=== PATIENT | male | born 1980 | race Caucasian/White ===

== ENCOUNTER 2021-10-23 22:20 | Emergency (ER) | payer OTHER ==
--- NOTE | 2021-10-23 22:29 | ERPHSYRPT ---
- History of Present Illness Time Seen by Provider: 10/23/21 22:28 Source: patient Exam Limitations: no limitations Physician History: This is a 41-year-old right-handed white male who does a lot of heavy lifting at work that is repetitive. He stated that he did a lot of lifting today and now he is having pain in his right shoulder and posterior neck primarily on the right side. The pain goes up into his scalp posteriorly. Occurred: this afternoon Quality: constant, sharpness, stabbing Severity of Pain-Max: moderate Severity of Pain-Current: moderate Extremities Pain Location: shoulder: right Modifying Factors: Improves With: movement Associated Symptoms: none Allergies/Adverse Reactions: No Known Drug Allergies Allergy (Unverified 10/23/21 22:36) Travel Risk - International Travel Have you traveled outside of the country in past 3 weeks: No - Coronavirus Screening Are you exhibiting any of the following symptoms?: No Close contact with a COVID-19 positive Pt in past 14-21 Days: No - Review of Systems Constitutional: No Symptoms Eyes: No Symptoms Ears, Nose, & Throat: No Symptoms Respiratory: No Symptoms Cardiac: No Symptoms Abdominal/Gastrointestinal: No Symptoms Genitourinary Symptoms: No Symptoms Musculoskeletal: Neck Pain (Right side paraspinous muscle region), Joint Pain (Right shoulder anterior and posterior) Neurological: No Symptoms Psychological: No Symptoms Endocrine: No Symptoms Hematologic/Lymphatic: No Symptoms Immunological/Allergic: No Symptoms All Other Systems: Reviewed and Negative - Past Medical History Pertinent Past Medical History: Yes - Past Surgical History Past Surgical History: Yes - Nursing Vital Signs Nursing Vital Signs: Initial Vital Signs Temperature 98.2 F 10/23/21 22:22 Pulse Rate 75 10/23/21 22:22 Respiratory Rate 18 10/23/21 22:22 Blood Pressure 153/85 10/23/21 22:22 O2 Sat by Pulse Oximetry 98 10/23/21 22:22 Pain Scale Pain Intensity 4 - Physical Exam General Appearance: no apparent distress, alert, anxiety Eyes, Ears, Nose, Throat Exam: normal ENT inspection, moist mucous membranes Neck Exam: normal inspection, non-tender, supple, full range of motion Cardiovascular/Respiratory Exam: chest non-tender, no respiratory distress Abdominal Exam: non-tender Back Exam: normal inspection, normal range of motion, muscle spasm (Posterior neck paraspinous muscle region cervical spine level. Distribution of the trapezius muscle on the right side), No CVA tenderness, No vertebral tenderness Shoulder Exam: normal inspection, no evidence of injury, normal ROM, soft tissue tenderness (Posterior the distribution of the trapezius muscle) Elbow/Forearm Exam: normal inspection, non-tender, no evidence of injury, normal ROM Wrist Exam: normal inspection, non-tender, no evidence of injury, normal ROM Hand Exam: normal inspection, non-tender, no evidence of injury, normal ROM Neuro/Tendon Exam: normal sensation, normal motor functions, normal tendon functions Mental Status Exam: alert, oriented x 3, cooperative Skin Exam: normal color, warm, dry SpO2 Interpretation: normal O2 Delivery: Room Air - Course Nursing assessment & vital signs reviewed: Yes Ordered Tests: Active Orders 24 hr Category Date Time Status SHOULDER Stat Exams 10/23/21 22:47 Taken Medication Summary Discontinued Medications Generic Name Dose Route Start Last Admin Trade Name Freq PRN Reason Stop Dose Admin Methylprednisolone Sodium 0 mg 10/23/21 22:57 Succinate 125 mg/ Sterile IM 10/23/21 22:58 Water 2 ml STAT ONE Hydromorphone HCl 1 mg 10/23/21 22:56 Hydromorphone 1 Mg/1ml Inj 1 Mg/Ml Syringe IM 10/23/21 22:57 STAT ONE Hydromorphone HCl Confirm 10/23/21 23:05 Hydromorphone 1 Mg/1ml Inj 1 Mg/Ml Syringe Administered 10/23/21 23:06 Dose 1 mg .ROUTE .STK-MED ONE Methylprednisolone Sodium Succinate Confirm 10/23/21 23:05 Methylprednis Sod Succ 125 Mg/2 Ml Vial Administered 10/23/21 23:06 Dose 125 mg .ROUTE .STK-MED ONE Ondansetron HCl 4 mg 10/23/21 22:56 Zofran 4 Mg/Udtablet Orally Disintegrating PO 10/23/21 22:57 STAT ONE Ondansetron HCl Confirm 10/23/21 23:04 Zofran 4 Mg/Udtablet Orally Disintegrating Administered 10/23/21 23:05 Dose 4 mg .ROUTE .STK-MED ONE Orphenadrine Citrate 60 mg 10/23/21 22:57 Orphenadrine Citrate 60 Mg/2 Ml Vial IM 10/23/21 22:58 STAT ONE Orphenadrine Citrate Confirm 10/23/21 23:05 Orphenadrine Citrate 60 Mg/2 Ml Vial Administered 10/23/21 23:06 Dose 60 mg .ROUTE .STK-MED ONE Sterile Water Confirm 10/23/21 23:04 Water For Injection,Sterile 10 Ml Vial Administered 10/23/21 23:05 Dose 10 ml IJ .STK-MED ONE - Progress Progress: improved Progress Note: 10/23/21 23:10 Right shoulder x-ray shows no acute fracture or dislocation. Counseled pt/family regarding: diagnosis, need for follow-up, rad results - Departure Departure Disposition: Home Clinical Impression: Strain of right trapezius muscle Condition: Stable Critical Care Time: No Referrals: KEVYN FIGUEROA MD [Primary Care Provider] - Follow up/PCP as directed Additional Instructions: Take your medication as prescribed. Follow-up with your primary care physician for further management. They also use topical agents and massage to the right neck and shoulder muscles. Forms: Work/School Release Form Prescriptions: Oxycodone HCl/Acetaminophen [Percocet 5-325 mg Tablet] 1 each PO Q8H PRN PRN #6 tablet MDD 3 PRN Reason: Moderate To Severe Pain Naproxen 500 mg [Naprosyn 500 MG] 500 mg PO BID #10 tablet Orphenadrine Citrate 100 mg [Norflex 100 MG Tablet] 100 mg PO BID #10 tab
[2021-10-23 22:36] VITALS: O2SAT 98
[2021-10-23] MEDS ORDERED: ZOFRAN ODT 4 MG PO ONE (22:56)
[2021-10-23] MEDS ORDERED: Hydromorphone 1 mg/ml Injection IM ONE (22:56)
[2021-10-23] MEDS ORDERED: solu-MEDROL 125 MG, Sterile H2O 10 ml 2 ML IM ONE ×2 (22:57)
[2021-10-23] MEDS ORDERED: Norflex 60 MG/2 ML IM ONE (22:57)
[2021-10-23] MEDS ORDERED: ZOFRAN ODT 4 MG ONE (23:04)
[2021-10-23] MEDS ORDERED: Sterile H2O 10 ml IJ ONE (23:04)
[2021-10-23] MEDS ORDERED: solu-MEDROL ONE (23:05)
[2021-10-23] MEDS ORDERED: Hydromorphone 1 mg/ml Injection ONE (23:05)
[2021-10-23] MEDS ORDERED: Norflex 60 MG/2 ML ONE (23:05)
[2021-10-23 23:27] VITALS: BP 150/95; PULSE 67
--- NOTE | 2021-10-24 08:49 | XRAY ---
Indication: Pain following injury. Comparison: None 3 view right shoulder demonstrates mild acromioclavicular degenerative arthropathy and minimal degenerative changes throughout visualized spine. No other bony, articular, or soft tissue abnormalities.
== END 2021-10-23 23:36 | disposition home or self-care (01) ==
LOC: ED 22:20
DX: S46.811A Strain of other muscles, fascia and tendons at shoulder and upper arm level, right arm, initial encounter (principal); X50.0XXA Overexertion from strenuous movement or load, initial encounter; X50.3XXA Overexertion from repetitive movements, initial encounter; Y99.0 Civilian activity done for income or pay; M25.511 Pain in right shoulder; M54.2 Cervicalgia; Z79.891 Long term (current) use of opiate analgesic
CPT/HCPCS: 73030; 96372; 99284; J1170; J2360; J2930; Q0162

== ENCOUNTER 2023-03-17 13:11 | Emergency (ER) | payer OTHER ==
[2023-03-17 13:29] VITALS: BP 139/117; PULSE 83; RESP 20; TEMP 98; O2SAT 99
[2023-03-17] MEDS ORDERED: NORCO 5/325 MG PO ONE (13:53)
[2023-03-17] MEDS ORDERED: NORCO 5/325 MG ONE (13:57)
--- NOTE | 2023-03-17 13:59 | ERPHSYRPT ---
- History of Present Illness Time Seen by Provider: 03/17/23 13:28 Source: patient Exam Limitations: no limitations Patient Subjective Stated Complaint: C/O Left elbow pain/injury. States he was working with pallets a few days ago when one fell he attempted to catch it and heard a pop from his elbow area. He has been having some pain to the area since then. However, he re-injured the area while outside just prior to coming into the ER. He states it popped again and now the pain is worse. Triage Nursing Assessment: Patient ambulated back to ER gaurding left elbow and lower arm. A fading, green bruising noted to antecub area and lower anterior arm. Radial pulse present. Patient states he is unable to bend at his elbow related to pain. Arm/elbow elevated on pillows and ice pack applied. Patient displaying s/s of pain. Physician History: 42-year-old male [id number] presented to the ER with chief complaint of left elbow pain for the last 4 days. Patient reports he was working with pallets and 1 fell and tried to catch it with left hand and felt a popping sound in the elbow. He was taking ibuprofen and it was getting better and reinjured it again yesterday with snapping sensation. Patient reports moderate to severe sharp pain in the anterior elbow which is more with palpation and movements. No numbness tingling or weakness in the wrist/hand. Has mild bruising left anterior elbow with tenderness at biceps tendon area. No arm tenderness or pain. Intact range of motion. Distal neurovascular intact. No bony tenderness at all. X-rays are negative for fracture dislocation reviewed by me, official report is pending Given [place] for symptomatic relief. I believe patient has ligament strain/possible tear which is probably partial as patient has still intact range of motion. I believe he needs outpatient orthopedics follow-up for further evaluation with possible MRI. We will give him pain medication to go home, placed in a sling, recommended avoiding exertional activities and intermittent ice application. Discussed signs symptoms of worsening needing return to ER which she seems understanding. Stable for discharge. Allergies/Adverse Reactions: No Known Drug Allergies Allergy (Verified 03/17/23 13:22) Hx Tetanus, Diphtheria Vaccination/Date Given: Yes Hx Influenza Vaccination/Date Given: No Hx Pneumococcal Vaccination/Date Given: No Immunizations Up to Date: Yes Travel Risk - International Travel Have you traveled outside of the country in past 3 weeks: No - Coronavirus Screening Are you exhibiting any of the following symptoms?: No Close contact with a COVID-19 positive Pt in past 14-21 Days: No - Vaccine Status Have you recieved a Covid-19 vaccination: No - Review of Systems Constitutional: No Symptoms Ears, Nose, & Throat: No Symptoms Respiratory: No Symptoms Cardiac: No Symptoms Musculoskeletal: Injury, Joint Pain, Joint Swelling Skin: No Symptoms Neurological: No Symptoms Endocrine: No Symptoms - Past Medical History Pertinent Past Medical History: Yes Respiratory History: Sleep Apnea GI Medical History: GERD Other Medical History: vit b deficiency - Past Surgical History Past Surgical History: Yes Gastrointestinal: Appendectomy Other Surgical History: testicular infection drain - Social History Smoking Status: Current every day smoker How long have you smoked: 20 Exposure to second hand smoke: No Drug Use: none Patient Lives Alone: No - Nursing Vital Signs Nursing Vital Signs: Initial Vital Signs Temperature 98 F 03/17/23 13:11 Pulse Rate 83 03/17/23 13:11 Respiratory Rate 20 03/17/23 13:11 Blood Pressure 139/117 03/17/23 13:11 O2 Sat by Pulse Oximetry 99 03/17/23 13:11 Pain Scale Pain Intensity 10 - Physical Exam Cardiovascular/Respiratory Exam: normal breath sounds, regular rate/rhythm Shoulder Exam: normal inspection, non-tender, no evidence of injury, normal ROM Elbow/Forearm Exam: pain, soft tissue tenderness (Left elbow), swelling Wrist Exam: normal inspection, non-tender, no evidence of injury, normal ROM Hand Exam: normal inspection, non-tender, no evidence of injury, normal ROM Neuro/Tendon Exam: normal sensation, normal motor functions Mental Status Exam: alert, oriented x 3, cooperative SpO2 Interpretation: normal SpO2: 99 O2 Delivery: Room Air Ordered Tests: Active Orders 24 hr Category Date Time Status ELBOW (MINIMUM 3 VIEWS) Stat Exams 03/17/23 13:30 Ordered - Progress Progress: improved, pain not gone completely Progress Note: 03/17/23 14:30 42-year-old male [id number] presented to the ER with chief complaint of left elbow pain for the last 4 days. Patient reports he was working with pallets and 1 fell and tried to catch it with left hand and felt a popping sound in the elbow. He was taking ibuprofen and it was getting better and reinjured it again yesterday with snapping sensation. Patient reports moderate to severe sharp pain in the anterior elbow which is more with palpation and movements. No numbness tingling or weakness in the wrist/hand. Has mild bruising left anterior elbow with tenderness at biceps tendon area. No arm tenderness or pain. Intact range of motion. Distal neurovascular intact. No bony tenderness at all. X-rays are negative for fracture dislocation reviewed by me, official report is pending Given [place] for symptomatic relief. I believe patient has ligament strain/possible tear which is probably partial as patient has still intact range of motion. I believe he needs outpatient orthopedics follow-up for further evaluation with possible MRI. We will give him pain medication to go home, placed in a sling, recommended avoiding exertional activities and intermittent ice application. Discussed signs symptoms of worsening needing return to ER which she seems understanding. Stable for discharge. Counseled pt/family regarding: diagnosis, need for follow-up, rad results Medical Desision Making - Diagnostic Testing Radiological Interpretation: Interpreted by me, Reviewed by me - Risk of complications The pt has a mod risk of morbidity or mortality based on: Need for prescription drug management - Departure Departure Disposition: Home Clinical Impression: Soft tissue injury of left elbow Condition: Stable Critical Care Time: No Referrals: KEVYN FIGUEROA MD [Primary Care Provider] - Follow up with PCP 1 day ESEQUI[facility] - MUSA RIVAS NP [NON-STAFF PHY W/O PRIVILEGES] - Follow up/PCP as directed (tomorrow for reevaluation) Instructions: Elbow Sprain (DC) Additional Instructions: Take pain medications as needed. Intermittent ice application. Avoid exertional activities. Follow-up with orthopedics for reevaluation in the morning. Return to ER for any worsening. Prescriptions: Hydrocodone/Acetaminophen [Hydrocodone-Acetamin 5-325 mg] 1 tab PO Q6HPRN PRN 3 Days #12 tablet MDD 4 PRN Reason: Pain
--- NOTE | 2023-03-17 18:04 | XRAY ---
Indication: Pain following injury days ago. Comparison: None 3 view left elbow obtained. No bony, articular, or soft tissue abnormalities.
== END 2023-03-17 14:49 ==
LOC: ED 13:11
DX: S50.02XA Contusion of left elbow, initial encounter (principal); X50.0XXA Overexertion from strenuous movement or load, initial encounter; Z79.891 Long term (current) use of opiate analgesic; Z28.310 Unvaccinated for COVID-19; Z72.0 Tobacco use
CPT/HCPCS: 73080; 99283; A9270-GY

== ENCOUNTER 2023-11-30 13:46 | Emergency (ER) | payer OTHER ==
--- NOTE | 2023-11-30 13:54 | ERPHSYRPT ---
- History of Present Illness Time Seen by Provider: 11/30/23 13:54 Source: patient, family Exam Limitations: no limitations Physician History: This is a 43-year-old white male patient who presents with known history of right posterior shoulder cyst that over the last 1 to 2 weeks has become enlarged, inflamed, tender and red with drainage of puslike material. Patient takes no medications chronically and he has no known drug allergies. Patient has not had any fevers. Timing/Duration: week(s), worse Quality: painful (1 to 2 weeks) Severity: mild (To moderate) Location: torso (Right posterior shoulder skin abscess) Possible Causes: other (Infected epidermal inclusion cyst) Associated Symptoms: denies symptoms Allergies/Adverse Reactions: No Known Drug Allergies Allergy (Verified 11/30/23 13:50) Hx Tetanus, Diphtheria Vaccination/Date Given: Yes Hx Influenza Vaccination/Date Given: No Hx Pneumococcal Vaccination/Date Given: No Travel Risk - International Travel Have you traveled outside of the country in past 3 weeks: No - Emerging Infectious Disease Are you exhibiting symptoms associated with any current EIDs: No - Review of Systems Constitutional: No Symptoms Eyes: No Symptoms Ears, Nose, & Throat: No Symptoms Respiratory: No Symptoms Cardiac: No Symptoms Abdominal/Gastrointestinal: No Symptoms Genitourinary Symptoms: No Symptoms Musculoskeletal: No Symptoms Skin: Other (Skin right posterior shoulder abscess) Neurological: No Symptoms Psychological: No Symptoms Endocrine: No Symptoms Hematologic/Lymphatic: No Symptoms Immunological/Allergic: No Symptoms All Other Systems: Reviewed and Negative - Past Medical History Pertinent Past Medical History: Yes Neurological History: No Pertinent History Cardiac History: No Pertinent History Respiratory History: No Pertinent History Endocrine Medical History: No Pertinent History Musculoskeletal History: No Pertinent History GI Medical History: GERD Other Medical History: APPENDECTOMY. - Past Surgical History Past Surgical History: Yes Gastrointestinal: Appendectomy Other Surgical History: testicular infection drain,bicep - Social History Smoking Status: Current every day smoker How long have you smoked: 20 Exposure to second hand smoke: No Drug Use: none Patient Lives Alone: No - Nursing Vital Signs Nursing Vital Signs: Initial Vital Signs Temperature 97.7 F 11/30/23 13:59 Pulse Rate 77 11/30/23 13:59 Respiratory Rate 16 11/30/23 13:59 Blood Pressure 127/95 11/30/23 13:59 O2 Sat by Pulse Oximetry 97 11/30/23 13:59 Pain Scale Pain Intensity 9 - Physical Exam General Appearance: no apparent distress, alert, anxiety Eye Exam: PERRL/EOMI, eyes nml inspection Ears, Nose, Throat Exam: normal ENT inspection, moist mucous membranes Neck Exam: normal inspection, non-tender, supple, full range of motion Respiratory Exam: airway intact, No chest tenderness, No respiratory distress Gastrointestinal/Abdomen Exam: No tenderness Rectal Exam: not done Back Exam: other (Infected epidermal inclusion cyst with abscess skin right posterior shoulder) Extremity Exam: normal range of motion, pelvis stable, tenderness (See above back exam section) Neurologic Exam: alert, oriented x 3, cooperative, tawer II-XII nml as tested, nml cerebellar function, nml station & gait, sensation nml Skin Exam: other (See above back exam section) Lymphatic Exam: No adenopathy SpO2 Interpretation: normal O2 Delivery: Room Air Procedures - Incision and Drainage Time of Procedure: 14:10 Timeout: Performed Site: Skin right posterior shoulder Anesthesia: 1% Lidocaine cc's of anesthesia: 5 Blade Size: 11 I & D Procedure: hibiclens prep, culture obtained, irrigated with normal saline, gauze wick placed Results: moderate amount pus - Course Nursing assessment & vital signs reviewed: Yes Ordered Tests: Active Orders 24 hr Category Date Time Status CULTURE,WOUND Stat Lab 11/30/23 14:19 Ordered - Progress Progress: improved, pain not gone completely, re-examined Progress Note: 11/30/23 14:24 My medical decision making and the assignment of low complexity to this patient's medical issue today is based on review of the patient's past medical history, review of the patient's medication list, review patient drug allergy list, history present illness and physical findings on examination. The workup in this patient does not require any laboratory radiographic studies. Counseled pt/family regarding: diagnosis, need for follow-up Medical Desision Making - Independent Historian Additional History obtained from: Family - Diagnostic Testing Diagnostic test were ordered, analyzed, and reviewed by me: No - Risk of complications The pt has a mod risk of morbidity or mortality based on: Need for prescription drug management - Departure Departure Disposition: Home Clinical Impression: Abscess Condition: Stable Critical Care Time: No Referrals: LEEANNA THOMAS [employer]PER[employer] [Primary Care Provider] - Follow up/PCP as directed Additional Instructions: Keep the current dressing in place until this evening. Take the packing gauze out first then allow soapy water to enter the abscess cavity. Blot dry or use a dental chair assembler to dry the site then place approximately 6 inch piece of packing gauze into the site and cover with a nonstick bandage. Perform this twice a day. Take your [place] 5/325 pain medicine 1/2-hour to 1 hour prior to the packing gauze removal/dressing change. Take your antibiotics as prescribed. Call your primary care physician on 12/02/2023 to make arrangements for a follow- up appointment in the next 5 to 7 days for wound check. Prescriptions: Hydrocodone/APAP 5/325 [[place] 5/325 mg] 1 each PO Q8H PRN PRN #10 tablet MDD 3 PRN Reason: Pain Smz/Tmp Ds Tablet [Bactrim Ds Tablet] 1 udtab PO BID #14 tablet
[2023-11-30 14:00] VITALS: TEMP 97.7
[2023-11-30] MEDS ORDERED: NORCO 5/325 MG ONE (14:30)
[2023-11-30] MEDS ORDERED: BACTRIM DS TABLET PO ONE (14:30)
[2023-11-30] MEDS: BACTRIM DS TABLET PO ONE (14:31)
[2023-11-30] MEDS: NORCO 5/325 MG PO ONE (14:32)
[2023-11-30 14:47] VITALS: BP 140/72; PULSE 78; RESP 18; O2SAT 98
== END 2023-11-30 14:48 | disposition home or self-care (01) ==
LOC: ED 13:46
DX: L02.413 Cutaneous abscess of right upper limb (principal); L72.0 Epidermal cyst; Z79.891 Long term (current) use of opiate analgesic; Z79.899 Other long term (current) drug therapy; Z72.0 Tobacco use
CPT/HCPCS: 10060; 87070; 99283; A9270-GY